=== PATIENT | male | born 1985 | race Caucasian/White ===

== ENCOUNTER → 2024-06-05 07:50 | Outpatient (REF) | payer BC, SELFPAY | LOC: HWRAD 07:50 | PROVIDERS: ATTENDING PHYSICIAN Nurse Practitioner Adult Health | DX: R07.81 Pleurodynia (principal); M89.9 Disorder of bone, unspecified | CPT/HCPCS: 76604 ==

== ENCOUNTER → 2024-12-29 10:50 | Outpatient (REF) | payer BC, SELFPAY | LOC: HWRAD 10:50 | PROVIDERS: ATTENDING PHYSICIAN Nurse Practitioner Adult Health | DX: R10.9 Unspecified abdominal pain (principal) | CPT/HCPCS: 76700 ==